=== PATIENT | male | born 1980 | race Caucasian/White ===

== ENCOUNTER 2017-11-24 09:24 | Emergency (ER) | payer OTHER ==
[~2017-11-24] VITALS: Ht 182.9 cm; Wt 104.0 kg
[2017-11-24] MEDS ORDERED: KETOROLAC TROMETHAMINE 60 MG/2 ML VIAL IM ONE (10:30)
[2017-11-24] MEDS ORDERED: IBUPROFEN 800 MG TABLET PO ONE (11:30)
[2017-11-24 12:04] LABS: INFLUENZA TYPE B NEGATIVE FOR TYPE B (NEGATIVE)
[2017-11-24 12:25] VITALS: BP 141/90
== END 2017-11-24 12:34 | disposition home or self-care (01) ==
LOC: EMS 09:29
DX: J20.9 Acute bronchitis, unspecified (principal); B34.9 Viral infection, unspecified
CPT/HCPCS: 71020; 87804; 99285; J1885